=== PATIENT | female | born 1950 | race Caucasian/White ===

== ENCOUNTER 2021-05-09 14:01 | Emergency (ER) | payer OTHER, BC ==
[~2021-05-09] VITALS: Ht 170.2 cm; Wt 102.1 kg
[~2021-05-09 14:01] MED LIST: ADULT LOW DOSE81 MG PO; ALLEGRA180 MG PO; ALTACE2.5 MG PO; ALTACE5 M1 PO; ASPIRIN325 PO; ASTELIN NASAL; B-COMPLEX PLUS1 EACH PO; CALCIUM PO; CARAFATE 1 GM TA1 G1 PO; COLACE100 MG PO; FLONASE 0.05%50 MCG; FLONASE NS; LEVOTHROID PO; NASAL MOISTURIZ30 ML NS; NEXIUM40 MG PO; SOTALOL 120 MG120 MG PO; TENORMIN25 MG PO; TYLENOL325 MG PO
[2021-05-09] MEDS ORDERED: DIAZEPAM 5 MG5 M1 PO (15:55)
[2021-05-09 15:58] VITALS: BP 137/51
== END 2021-05-09 15:58 | disposition home or self-care (01) ==
LOC: ER 14:01
DX: M54.5 Low back pain (principal); M25.551 Pain in right hip; I48.91 Unspecified atrial fibrillation; Z98.51 Tubal ligation status; Z90.49 Acquired absence of other specified parts of digestive tract; Z79.899 Other long term (current) drug therapy; Z79.82 Long term (current) use of aspirin; Z88.8 Allergy status to other drugs, medicaments and biological substances; Z88.1 Allergy status to other antibiotic agents; Z91.012 Allergy to eggs; Z88.6 Allergy status to analgesic agent; Z91.041 Radiographic dye allergy status; Z91.011 Allergy to milk products; Z88.0 Allergy status to penicillin; Z87.891 Personal history of nicotine dependence; X50.1XXA Overexertion from prolonged static or awkward postures, initial encounter; Y93.89 Activity, other specified; Y92.89 Other specified places as the place of occurrence of the external cause; Y99.8 Other external cause status